=== PATIENT | female | born 1995 ===

== ENCOUNTER 2016-10-11 20:27 | Inpatient (IN) | payer BC ==
--- NOTE | 2016-10-11 21:21 | EDPHY ---
H & P Smoking Status: Never smoked Time Seen by Provider: 10/11/16 20:40 HPI/ROS: CHIEF COMPLAINT: Depression, feeling suicidal HISTORY OF PRESENT ILLNESS: 21-year-old female presents to the emergency department feeling depressed and suicidal. The patient states that she has had ongoing depression. She has been treated with medication in the past and stopped her medication on her own 1 month ago because she states "I just gave up." She continues to feel suicidal and her plan is to cut her wrists. She denies homicidal ideation. Denies auditory or visual hallucinations. Denies any reported trauma. She does smoke marijuana, last use was last evening. Denies any other substance abuse or alcohol. Currently she has no physical complaints. No chest pain or difficulty breathing. No abdominal pain. REVIEW OF SYSTEMS: Constitutional: No fever, no chills. Eyes: No double or blurry vision. ENT: No sore throat. Respiratory: No cough, no shortness of breath. Cardiac: No chest pain. Gastrointestinal: No abdominal pain, vomiting or diarrhea. Genitourinary: No dysuria. Musculoskeletal: No neck or back pain. Skin: No rashes. Neurological: No headache. (Riri Brush) Past Medical/Surgical History: Depression, orthopedic surgery (Riri Brush) Social History: Single, from [place] (Riri Brush) Physical Exam: General Appearance: Alert, no distress. Her girlfriend is at bedside. Eyes: Pupils equal and round. Extraocular motions are all intact. ENT: Mouth: Mucous membranes moist. Respiratory: No wheezing, rhonchi, or rales, lungs are clear to auscultation. Cardiovascular: Regular rate and rhythm. Gastrointestinal: Abdomen is soft and nontender, no masses, no rebound or guarding, bowel sounds normal. Neurological: Alert and oriented x 3, cranial nerves II through XII grossly intact Skin: Warm and dry, no rashes. Musculoskeletal: Nontender to palpate along the cervical, thoracic or lumbar spine. Neck is supple. Extremities: Full range of motion and no peripheral edema. Psychiatric: Patient is oriented X 3, there is no agitation. (Riri Brush) Constitutional: Initial Vital Signs Temperature (C) 36.9 C 10/11/16 20:44 Heart Rate 91 10/11/16 20:44 Respiratory Rate 14 10/11/16 20:44 Blood Pressure 115/87 H 10/11/16 20:44 O2 Sat (%) 95 10/11/16 20:44 O2 Delivery Mode Room Air Allergies/Adverse Reactions: No Known Allergies Allergy (Unverified 10/11/16 20:40) Home Medications: Medication Instructions Recorded ARIPiprazole [Aripiprazole] 5 mg PO DAILY 10/12/16 FLUoxetine [Prozac 20 MG (*)] 40 mg PO DAILY 10/12/16 Gabapentin [Gabapentin] 100 mg PO TID 10/12/16 traZODone [traZODONE 50MG (*)] 50 - 100 mg PO HS 10/12/16 Medical Decision Making ED Course/Re-evaluation: 21-year-old female presents voluntarily feeling depressed and suicidal. She was placed on a detainer. Laboratory studies are pending. When she is medically cleared, she will be evaluated by mental health. Patient is a been evaluated by mental health. She was placed on an M1 hold and will be placed on [address] [place] [address] at [facility]. (Riri Brush) I assumed care of this patient from Dr. Zendejas at 7:00 a.m.. I was notified by her nurse that she had a headache and was requesting Tylenol. Tylenol as being administered. Her transfer to [address] [place] [address] is scheduled for this morning. ( Tamy Loving) 11:30 p.m. patient placed on an M1 hold after evaluation by mental health services. They will begin looking for placement. (Junior Zendejas) Differential Diagnosis: Depression including functional and major depression, situational depression, medication side effect, drugs and alcohol abuse. (Riri Brush) - Data Points Laboratory Results: Laboratory Results 10/11/16 20:45 10/11/16 20:45 Medications Given: Discontinued Medications Acetaminophen (Tylenol) 650 mg PO EDNOW ONE Stop: 10/12/16 08:08 Last Admin: 10/12/16 08:08 Dose: 650 mg Departure - Departure Disposition: [facility] IP Clinical Impression: Suicidal ideation Condition: Good
[2016-10-11 21:23] LABS: % IMMATURE GRANULYOCYTES 0.3 % (0.0-1.1); ABSOLUTE IMMATURE GRANULOCYTES 0.03 10^3/uL (0.00-0.10); ADD DIFF? NO; ADD MORPH? NO; ADD SCAN? NO; ATYPICAL LYMPHOCYTE FLAG 20 (0-99); FRAGMENT RBC FLAG 0 (0-99); HEMATOCRIT 44.7 % (38.0-47.0); HEMOGLOBIN 14.8 g/dL (12.6-16.3); LEFT SHIFT FLG 0 (0-99); LIPEMIA HEMOLYSIS FLAG 80 (0-99); MEAN CELL HEMOGLOBIN 29.2 pg (27.9-34.1); MEAN CELL HEMOGLOBIN CONCENTR. 33.1 g/dL (32.4-36.7); MEAN CELL VOLUME 88.2 fL (81.5-99.8); MEAN PLATELET VOLUME 10.8 fL (8.7-11.7); PLATELET CLUMPS FLAG 0 (0-99); PLATELET COUNT 368 10^3/uL (150-400); RED BLOOD CELL COUNT 5.07 10^6/uL (4.18-5.33)
[2016-10-11 21:26] LABS: ANION GAP 14 mEq/L (8-16); CALCIUM 9.8 mg/dL (8.5-10.4); CARBON DIOXIDE 24 mEq/l (22-31); CHLORIDE 102 mEq/L (97-110); CREATININE 0.8 mg/dL (0.6-1.0); GLOMERULAR FILTRATION RATE > 60; GLUCOSE 84 mg/dL (70-100); POTASSIUM 4.1 mEq/L (3.5-5.2); SODIUM 140 mEq/L (134-144)
[2016-10-12] MEDS ORDERED: ACETAMINOPHEN 325 MG TAB PO ONE (08:07)
--- NOTE | 2016-10-12 18:28 | BCON ---
[ rep ] BEHAVIORAL HEALTH CONSULTATION INTERNAL MEDICINE CONSULTATION DATE OF CONSULTATION: 10/12/2016 REFERRING PHYSICIAN: Dr. Goldman REASON FOR CONSULTATION: Medical clearance for inpatient behavioral health stay. HISTORY OF PRESENT ILLNESS: Ms. Acevedo came to the emergency department yesterday reporting suicidal ideation and plan to commit suicide by cutting her wrists. She was evaluated by the mental health team and admitted for further psychiatric care. Currently, she is without any medical complaints. PAST MEDICAL HISTORY: 1. Depression. 2. History of ankle surgery for a bone fragment. MEDICATIONS: Prior to admission, she was prescribed aripiprazole, gabapentin, fluoxetine, and trazodone. She reports that she had been noncompliant with these medications for approximately a month, but took them again on the day of admission. ALLERGIES: There are no known drug allergies. SOCIAL HISTORY: [place] She works on the farm 2 days a week. She has a girlfriend. She denies tobacco use. She has alcohol about once a week and she has regular marijuana use. FAMILY HISTORY: Noncontributory. REVIEW OF SYSTEMS: She denies weight change, fevers, chills, cough, dyspnea, chest pain, palpitations, nausea, vomiting, constipation, diarrhea, dysuria, urinary frequency, joint pain or joint swelling, and otherwise a 10-point review of systems is negative. PHYSICAL EXAMINATION: VITAL SIGNS: Blood pressure is 113/74, heart rate is 88 , respiratory rate is 14, oxygen saturation is 96% on room air, temperature is 36.8 degrees centigrade. Weight is 90.7 kg for a body mass index of 35.4. GENERAL: This is an obese woman, appears her chronologic age, cooperative, and in no acute distress. HEENT: Extraocular movements are intact. Pupils are equal, round, and reactive to light. Mucous membranes are moist. Dentition is in good condition. She has a somewhat crowded airway, Mallampati class 3. There is no posterior oropharyngeal mucus. There are no oropharyngeal mucosal lesions. NECK: Supple. HEART: There is a regular rate and rhythm with no murmurs, rubs, or gallops. LUNGS: Clear to auscultation bilaterally. ABDOMEN : Soft, nontender, nondistended with normoactive bowel sounds. EXTREMITIES: There is no cyanosis, clubbing or edema. NEUROLOGIC: She is alert and oriented x3. Cranial nerves 2-12 are grossly intact. There is no focal weakness and sensation is intact to light touch. LABORATORY STUDIES: Drawn in the emergency department: CBC revealed an elevated white blood cell count of 9.94. There was no left shift. There was a slight predominance of absolute monocytes of 0.86. Serum chemistry revealed normal renal function and electrolytes. TSH was normal. Beta HCG was negative for . Toxicology screen in the urine was non-negative for marijuana and was otherwise negative for substances of abuse. ASSESSMENT/RECOMMENDATIONS: 1. Mental health issues, pending further evaluation and management per Psychiatry and the mental health team. 2. Obesity. Consider avoiding medications which might cause further weight gain; however, psychosocial stabilization is our 1st priority in her current circumstance. I see no medical contraindications to Ms. Acevedo's continued stay on the inpatient behavioral health unit or to any psychiatric medications or procedures. Thank you very much for including me in the care of Ms. Acevedo, and please do not hesitate to contact me or the hospitalist service should there be need for further medical evaluation. /[id number]/MODL MTDD
[2016-10-12] MEDS: LORazepam 0.5 MG TAB PO PRN (20:42)
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
--- NOTE | 2016-10-13 13:25 | SOAPPROG ---
[facility] Progress Note Assessment/Plan: Assessment: Plan: 10/13/16 13:19 DAY Pt seen in f/u to the admission interview earlier today; case reviewed telephonically with PCP in [place] who had prescribed for pt for 2 years. He was not aware of her Bipolar vulnerability and prescribed SSRI's and did confirm the h/o of good responsiveness and then "poop out" phenomenon to Prozac and others. Pt accepting beginning a trial of Lithobid and Wellbutrin at 600 mg and 100 mg qd respectively. Will try Wellbutrin for more rapid response and because previous extended AD courses have apparently not caused any switch episodes or change the monthly pattern of 3-5 day functional hypomanias pre pt's report. Will obtain further collateral data. Objective: Vital Signs Temp Pulse Resp BP Pulse Ox 36.7 C 99 15 108/71 96 10/13/16 06:00 10/13/16 06:00 10/13/16 06:00 10/13/16 06:00 10/13/16 06:00 ICD10 Worksheet Patient Problems: Problems Problem Status Onset Suicidal ideation Acute
[2016-10-13] MEDS: LITHIUM CARBONATE ER 300 MG TAB PO SCH ×2 (13:53→20:24)
[2016-10-13] MEDS: buPROPion SR 100 MG TAB PO SCH (13:54)
[2016-10-13] MEDS: LORazepam 0.5 MG TAB PO PRN (16:29)
[2016-10-14] MEDS: LORazepam 0.5 MG TAB PO PRN (03:10)
[2016-10-14] MEDS: buPROPion SR 100 MG TAB PO SCH (12:22)
[2016-10-14] MEDS: LITHIUM CARBONATE ER 300 MG TAB PO SCH (12:22)
--- NOTE | 2016-10-14 12:48 | SOAPPROG ---
PA Progress Note Assessment/Plan: Assessment: Plan: 10/13/16 13:19 DAY Pt seen in f/u to the admission interview earlier today; case reviewed telephonically with PCP in [place] who had prescribed for pt for 2 years. He was not aware of her Bipolar vulnerability and prescribed SSRI's and did confirm the h/o of good responsiveness and then "poop out" phenomenon to Prozac and others. Pt accepting beginning a trial of Lithobid and Wellbutrin at 600 mg and 100 mg qd respectively. Will try Wellbutrin for more rapid response and because previous extended AD courses have apparently not caused any switch episodes or change the monthly pattern of 3-5 day functional hypomanias pre pt's report. Will obtain further collateral data. 09/22162216 UPDATE: Objective: Vital Signs Temp Pulse Resp BP Pulse Ox 36.9 C 80 14 110/73 97 10/14/16 06:00 10/14/16 06:00 10/14/16 06:00 10/14/16 06:00 10/14/16 06:00 ICD10 Worksheet Patient Problems: Problems Problem Status Onset Suicidal ideation Acute
--- NOTE | 2016-10-14 13:27 | SOAPPROG ---
[facility] Progress Note Assessment/Plan: Assessment: Plan: 10/13/16 13:19 DAY Pt seen in f/u to the admission interview earlier today; case reviewed telephonically with PCP in [place] who had prescribed for pt for 2 years. He was not aware of her Bipolar vulnerability and prescribed SSRI's and did confirm the h/o of good responsiveness and then "poop out" phenomenon to Prozac and others. Pt accepting beginning a trial of Lithobid and Wellbutrin at 600 mg and 100 mg qd respectively. Will try Wellbutrin for more rapid response and because previous extended AD courses have apparently not caused any switch episodes or change the monthly pattern of 3-5 day functional hypomanias pre pt's report. Will obtain further collateral data. 09/2216 13:20 DAY 3 UPDATE: Nursing reports remains somewhat isolative, c/w cares/meds; curled up in shower stall last PM in a transient "breakdown" - code word for loneliness and missing family and girlfriend and c/w pt's prominent object dependency ON EXAM: presnets as outwardly calm, cooperative, c onversant; report that she' s switched last pm to an internal sense of hypomania a/w racing thoughts, briefer thought focus, interrupted sleep; she states she's "due" for a 3-5 day hypomanic episode; meds reviewed as referenced; responsive to reintegrative support. ASSESSMENT/PLAN: affective state change from syndromal depression to mildly hypomanic state/ will increase Lithobid to 900 mg qd, no change in Wellbutrin dosing for now, add Trazodone 50 mg hs prn; continue current management plan other then to s/i as Voluntary pt and open up AG's Objective: Vital Signs Temp Pulse Resp BP Pulse Ox 36.9 C 80 14 110/73 97 10/14/16 06:00 10/14/16 06:00 10/14/16 06:00 10/14/16 06:00 10/14/16 06:00 ICD10 Worksheet Patient Problems: Problems Problem Status Onset Suicidal ideation Acute
[2016-10-14] MEDS ORDERED: LITHIUM CARBONATE ER 300 MG TAB PO SCH (21:00)
[2016-10-14] MEDS: traZODone 50 MG TAB PO PRN (22:04)
--- NOTE | 2016-10-15 07:16 | SOAPPROG ---
[facility] Progress Note Assessment/Plan: Assessment: Plan: 10/13/16 13:19 DAY Pt seen in f/u to the admission interview earlier today; case reviewed telephonically with PCP in [place] who had prescribed for pt for 2 years. He was not aware of her Bipolar vulnerability and prescribed SSRI's and did confirm the h/o of good responsiveness and then "poop out" phenomenon to Prozac and others. Pt accepting beginning a trial of Lithobid and Wellbutrin at 600 mg and 100 mg qd respectively. Will try Wellbutrin for more rapid response and because previous extended AD courses have apparently not caused any switch episodes or change the monthly pattern of 3-5 day functional hypomanias pre pt's report. Will obtain further collateral data. 10/14/16 DAY ' UPDATE: Objective: Vital Signs Temp Pulse Resp BP Pulse Ox 36.8 C 59 L 14 100/59 L 97 10/15/16 06:00 10/15/16 06:00 10/15/16 06:00 10/15/16 06:00 10/15/16 06:00 ICD10 Worksheet Patient Problems: Problems Problem Status Onset Suicidal ideation Acute
--- NOTE | 2016-10-15 07:28 | SOAPPROG ---
PA Progress Note Assessment/Plan: Assessment: Plan: 10/13/16 13:19 DAY Pt seen in f/u to the admission interview earlier today; case reviewed telephonically with PCP in [place] who had prescribed for pt for 2 years. He was not aware of her Bipolar vulnerability and prescribed SSRI's and did confirm the h/o of good responsiveness and then "poop out" phenomenon to Prozac and others. Pt accepting beginning a trial of Lithobid and Wellbutrin at 600 mg and 100 mg qd respectively. Will try Wellbutrin for more rapid response and because previous extended AD courses have apparently not caused any switch episodes or change the monthly pattern of 3-5 day functional hypomanias pre pt's report. Will obtain further collateral data. 10/14/16 12:15 DAY ' UPDATE: Nursing report pt appears less depressed, c/w cares and meds; found curled up in shower stall in pm 10/13 c/o "loneliness" and missing friends and family. wishing she could be dc'd home. ON EXAM: presents as relatively calm, brighter mood; describes onset of " racing thoughts" emerging in pm before sleep c/w onset of monthly hypomanic episode which pt is not able clearly to relate to menstrual cycle; able to discuss regressive episode last evening as a "crisis" of loneliness which she states she has from time to time and consistent with her dependent needs for contact with objects in her life; meds reviewed and pt accepts updosing of Lithobid; no POS and pt with intact attention/concentration, affectively outwardly stable ASSESSMENT/PLAN: emerging hypomania - "quiet type/ monitor MSE for further switch phenomnology; [place] increased to 900 mg qd and Wellbutrin SR unchanged at 100 mg; continue current management plan Objective: Vital Signs Temp Pulse Resp BP Pulse Ox 36.8 C 59 L 14 100/59 L 97 10/15/16 06:00 10/15/16 06:00 10/15/16 06:00 10/15/16 06:00 10/15/16 06:00 ICD10 Worksheet Patient Problems: Problems Problem Status Onset Suicidal ideation Acute
[2016-10-15] MEDS ORDERED: LITHIUM CARBONATE ER 300 MG TAB PO SCH ×4 (09:00→21:00)
[2016-10-15] MEDS: buPROPion SR 100 MG TAB PO SCH (09:13)
--- NOTE | 2016-10-15 11:56 | SOAPPROG ---
[facility] Progress Note Assessment/Plan: Assessment: Plan: 10/13/16 13:19 DAY Pt seen in f/u to the admission interview earlier today; case reviewed telephonically with PCP in [place] who had prescribed for pt for 2 years. He was not aware of her Bipolar vulnerability and prescribed SSRI's and did confirm the h/o of good responsiveness and then "poop out" phenomenon to Prozac and others. Pt accepting beginning a trial of Lithobid and Wellbutrin at 600 mg and 100 mg qd respectively. Will try Wellbutrin for more rapid response and because previous extended AD courses have apparently not caused any switch episodes or change the monthly pattern of 3-5 day functional hypomanias pre pt's report. Will obtain further collateral data. 10/14/16 12:15 DAY UPDATE: Nursing report pt appears less depressed, c/w cares and meds; found curled up in shower stall in pm 10/13 c/o "loneliness" and missing friends and family. wishing she could be dc'd home. ON EXAM: presents as relatively calm, brighter mood; describes onset of " racing thoughts" emerging in pm before sleep c/w onset of monthly hypomanic episode which pt is not able clearly to relate to menstrual cycle; able to discuss regressive episode last evening as a "crisis" of loneliness which she states she has from time to time and consistent with her dependent needs for contact with objects in her life; meds reviewed and pt accepts updosing of Lithobid; no POS and pt with intact attention/concentration, affectively outwardly stable ASSESSMENT/PLAN: emerging hypomania - "quiet type/ monitor MSE for further switch phenomenology; [place] increased to 900 mg qd and Wellbutrin SR unchanged at 100 mg; continue current management plan 10/15/16 11:43 DAY UPDATE/EXAM: Nursing reports pt slept, remained in good behavioral control without evidencing overt affective instability; c/w cares and meds/ on direct exam pt presents with neutral mood; reports diminution in internal raciness and minimal syndromal depression; meds discussed and pt agreeable to updosing [place] and checking level in AM and CC tentatively for 10/17 ASSESMENT/PLAN: improving descriptively, ? natural course of disorder vs medication effect/ increase [place] to 1200 mg qd and get level in AM; o/w no change in meds and management plan Objective: Vital Signs Temp Pulse Resp BP Pulse Ox 36.8 C 59 L 14 100/59 L 97 10/15/16 06:00 10/15/16 06:00 10/15/16 06:00 10/15/16 06:00 10/15/16 06:00 ICD10 Worksheet Patient Problems: Problems Problem Status Onset Suicidal ideation Acute
[2016-10-15] MEDS ORDERED: LITHIUM CARBONATE ER 300 MG TAB PO ONE (13:00)
[2016-10-15] MEDS: traZODone 50 MG TAB PO PRN (21:45)
--- NOTE | 2016-10-16 07:48 | SOAPPROG ---
[facility] Progress Note Assessment/Plan: Assessment: Plan: 10/13/16 13:19 DAY Pt seen in f/u to the admission interview earlier today; case reviewed telephonically with PCP in [place] who had prescribed for pt for 2 years. He was not aware of her Bipolar vulnerability and prescribed SSRI's and did confirm the h/o of good responsiveness and then "poop out" phenomenon to Prozac and others. Pt accepting beginning a trial of Lithobid and Wellbutrin at 600 mg and 100 mg qd respectively. Will try Wellbutrin for more rapid response and because previous extended AD courses have apparently not caused any switch episodes or change the monthly pattern of 3-5 day functional hypomanias pre pt's report. Will obtain further collateral data. 10/14/16 12:15 DAY UPDATE: Nursing report pt appears less depressed, c/w cares and meds; found curled up in shower stall in pm 10/13 c/o "loneliness" and missing friends and family. wishing she could be dc'd home. ON EXAM: presents as relatively calm, brighter mood; describes onset of " racing thoughts" emerging in pm before sleep c/w onset of monthly hypomanic episode which pt is not able clearly to relate to menstrual cycle; able to discuss regressive episode last evening as a "crisis" of loneliness which she states she has from time to time and consistent with her dependent needs for contact with objects in her life; meds reviewed and pt accepts updosing of Lithobid; no POS and pt with intact attention/concentration, affectively outwardly stable ASSESSMENT/PLAN: emerging hypomania - "quiet type/ monitor MSE for further switch phenomenology; [place] increased to 900 mg qd and Wellbutrin SR unchanged at 100 mg; continue current management plan 10/15/16 11:43 DAY UPDATE/EXAM: Nursing reports pt slept, remained in good behavioral control without evidencing overt affective instability; c/w cares and meds/ on direct exam pt presents with neutral mood; reports diminution in internal raciness and minimal syndromal depression; meds discussed and pt agreeable to updosing [place] and checking level in AM and CC tentatively for 10/17 ASSESMENT/PLAN: improving descriptively, ? natural course of disorder vs medication effect/ increase [place] to 1200 mg qd and get level in AM; o/w no change in meds and management plan 10/16/16 DAY ' UPDATE: Objective: Vital Signs Temp Pulse Resp BP Pulse Ox 37.0 C 89 14 110/67 97 10/16/16 06:00 10/16/16 06:00 10/16/16 06:00 10/16/16 06:00 10/16/16 06:00 ICD10 Worksheet Patient Problems: Problems Problem Status Onset Suicidal ideation Acute
[2016-10-16] MEDS: LITHIUM CARBONATE ER 300 MG TAB PO SCH ×2 (08:56→20:58)
[2016-10-16] MEDS: buPROPion SR 100 MG TAB PO SCH (08:56)
[2016-10-16 09:02] LABS: LITHIUM 0.6 mEq/L (0.6-1.2)
--- NOTE | 2016-10-16 16:15 | SOAPPROG ---
[facility] Progress Note Assessment/Plan: Assessment: Plan: 10/13/16 13:19 DAY Pt seen in f/u to the admission interview earlier today; case reviewed telephonically with PCP in [place] who had prescribed for pt for 2 years. He was not aware of her Bipolar vulnerability and prescribed SSRI's and did confirm the h/o of good responsiveness and then "poop out" phenomenon to Prozac and others. Pt accepting beginning a trial of Lithobid and Wellbutrin at 600 mg and 100 mg qd respectively. Will try Wellbutrin for more rapid response and because previous extended AD courses have apparently not caused any switch episodes or change the monthly pattern of 3-5 day functional hypomanias pre pt's report. Will obtain further collateral data. 10/14/16 12:15 DAY UPDATE: Nursing report pt appears less depressed, c/w cares and meds; found curled up in shower stall in pm 10/13 c/o "loneliness" and missing friends and family. wishing she could be dc'd home. ON EXAM: presents as relatively calm, brighter mood; describes onset of " racing thoughts" emerging in pm before sleep c/w onset of monthly hypomanic episode which pt is not able clearly to relate to menstrual cycle; able to discuss regressive episode last evening as a "crisis" of loneliness which she states she has from time to time and consistent with her dependent needs for contact with objects in her life; meds reviewed and pt accepts updosing of Lithobid; no POS and pt with intact attention/concentration, affectively outwardly stable ASSESSMENT/PLAN: emerging hypomania - "quiet type/ monitor MSE for further switch phenomenology; [place] increased to 900 mg qd and Wellbutrin SR unchanged at 100 mg; continue current management plan 10/15/16 11:43 DAY UPDATE/EXAM: Nursing reports pt slept, remained in good behavioral control without evidencing overt affective instability; c/w cares and meds/ on direct exam pt presents with neutral mood; reports diminution in internal raciness and minimal syndromal depression; meds discussed and pt agreeable to updosing [place] and checking level in AM and CC tentatively for 10/17 ASSESMENT/PLAN: improving descriptively, ? natural course of disorder vs medication effect/ increase [place] to 1200 mg qd and get level in AM; o/w no change in meds and management plan 10/16/16 16:15 DAY ' UPDATE//EXAM: Nursing reports pt as continuing improving course with stabilization affectively, c/w cares/meds; relative isolative but interacting with unit community appropriately/ on direct exam appear brighter and rei SI, depressive residual, and minimal hypomanic brkthru, tolerating meds well Objective: Vital Signs Temp Pulse Resp BP Pulse Ox 37.0 C 89 14 110/67 97 10/16/16 06:00 10/16/16 06:00 10/16/16 06:00 10/16/16 06:00 10/16/16 06:00 ICD10 Worksheet Patient Problems: Problems Problem Status Onset Suicidal ideation Acute
--- NOTE | 2016-10-16 16:18 | SOAPPROG ---
[facility] Progress Note Assessment/Plan: Assessment: Plan: 10/13/16 13:19 DAY Pt seen in f/u to the admission interview earlier today; case reviewed telephonically with PCP in [place] who had prescribed for pt for 2 years. He was not aware of her Bipolar vulnerability and prescribed SSRI's and did confirm the h/o of good responsiveness and then "poop out" phenomenon to Prozac and others. Pt accepting beginning a trial of Lithobid and Wellbutrin at 600 mg and 100 mg qd respectively. Will try Wellbutrin for more rapid response and because previous extended AD courses have apparently not caused any switch episodes or change the monthly pattern of 3-5 day functional hypomanias pre pt's report. Will obtain further collateral data. 10/14/16 12:15 DAY UPDATE: Nursing report pt appears less depressed, c/w cares and meds; found curled up in shower stall in pm 10/13 c/o "loneliness" and missing friends and family. wishing she could be dc'd home. ON EXAM: presents as relatively calm, brighter mood; describes onset of " racing thoughts" emerging in pm before sleep c/w onset of monthly hypomanic episode which pt is not able clearly to relate to menstrual cycle; able to discuss regressive episode last evening as a "crisis" of loneliness which she states she has from time to time and consistent with her dependent needs for contact with objects in her life; meds reviewed and pt accepts updosing of Lithobid; no POS and pt with intact attention/concentration, affectively outwardly stable ASSESSMENT/PLAN: emerging hypomania - "quiet type/ monitor MSE for further switch phenomenology; [place] increased to 900 mg qd and Wellbutrin SR unchanged at 100 mg; continue current management plan 10/15/16 11:43 DAY UPDATE/EXAM: Nursing reports pt slept, remained in good behavioral control without evidencing overt affective instability; c/w cares and meds/ on direct exam pt presents with neutral mood; reports diminution in internal raciness and minimal syndromal depression; meds discussed and pt agreeable to updosing [place] and checking level in AM and CC tentatively for 10/17 ASSESMENT/PLAN: improving descriptively, ? natural course of disorder vs medication effect/ increase [place] to 1200 mg qd and get level in AM; o/w no change in meds and management plan 10/16/16 16:15 DAY ' UPDATE//EXAM: Nursing reports pt as continuing improving course with stabilization affectively, c/w cares/meds; relative isolative but interacting with unit community appropriately/ on direct exam appear brighter and denies SI , depressive residual, and minimal hypomanic brkthru, tolerating meds well ASSESSMENT/PLAN: stabilizing mental status; [place] level 0.6/ no change in meds or management plan; anticipateDC in AM if progress holds and referrals in place Objective: Vital Signs Temp Pulse Resp BP Pulse Ox 37.0 C 89 14 110/67 97 10/16/16 06:00 10/16/16 06:00 10/16/16 06:00 10/16/16 06:00 10/16/16 06:00 ICD10 Worksheet Patient Problems: Problems Problem Status Onset Suicidal ideation Acute
[2016-10-16] MEDS: traZODone 50 MG TAB PO PRN (21:00)
[2016-10-17 06:22] VITALS: BP 121/59; PULSE 69; RESP 16; TEMP 98.4; O2SAT 95
--- NOTE | 2016-10-17 07:16 | SOAPPROG ---
[facility] Progress Note Assessment/Plan: Assessment: Plan: 10/13/16 13:19 DAY Pt seen in f/u to the admission interview earlier today; case reviewed telephonically with PCP in [place] who had prescribed for pt for 2 years. He was not aware of her Bipolar vulnerability and prescribed SSRI's and did confirm the h/o of good responsiveness and then "poop out" phenomenon to Prozac and others. Pt accepting beginning a trial of Lithobid and Wellbutrin at 600 mg and 100 mg qd respectively. Will try Wellbutrin for more rapid response and because previous extended AD courses have apparently not caused any switch episodes or change the monthly pattern of 3-5 day functional hypomanias pre pt's report. Will obtain further collateral data. 10/14/16 12:15 DAY UPDATE: Nursing report pt appears less depressed, c/w cares and meds; found curled up in shower stall in pm 10/13 c/o "loneliness" and missing friends and family. wishing she could be dc'd home. ON EXAM: presents as relatively calm, brighter mood; describes onset of " racing thoughts" emerging in pm before sleep c/w onset of monthly hypomanic episode which pt is not able clearly to relate to menstrual cycle; able to discuss regressive episode last evening as a "crisis" of loneliness which she states she has from time to time and consistent with her dependent needs for contact with objects in her life; meds reviewed and pt accepts updosing of Lithobid; no POS and pt with intact attention/concentration, affectively outwardly stable ASSESSMENT/PLAN: emerging hypomania - "quiet type/ monitor MSE for further switch phenomenology; [place] increased to 900 mg qd and Wellbutrin SR unchanged at 100 mg; continue current management plan 10/15/16 11:43 DAY UPDATE/EXAM: Nursing reports pt slept, remained in good behavioral control without evidencing overt affective instability; c/w cares and meds/ on direct exam pt presents with neutral mood; reports diminution in internal raciness and minimal syndromal depression; meds discussed and pt agreeable to updosing [place] and checking level in AM and CC tentatively for 10/17 ASSESSMENT/PLAN: improving descriptively, ? natural course of disorder vs medication effect/ increase [place] to 1200 mg qd and get level in AM; o/w no change in meds and management plan 10/16/16 16:15 DAY UPDATE//EXAM: Nursing reports pt as continuing improving course with stabilization affectively, c/w cares/meds; relative isolative but interacting with unit community appropriately/ on direct exam appear brighter and denies SI , depressive residual, and minimal hypomanic brkthru, tolerating meds well ASSESSMENT/PLAN: stabilizing mental status; [place] level 0.6/ no change in meds or management plan; anticipate DC in AM if progress holds and referrals in place 10/17/16 Brief DC Note DAY UPDATE/EXAM: Objective: Vital Signs Temp Pulse Resp BP Pulse Ox 36.9 C 69 16 121/59 H 95 10/17/16 06:00 10/17/16 06:00 10/17/16 06:00 10/17/16 06:00 10/17/16 06:00 ICD10 Worksheet Patient Problems: Problems Problem Status Onset Suicidal ideation Acute
[2016-10-17] MEDS: LITHIUM CARBONATE ER 300 MG TAB PO SCH (09:07)
[2016-10-17] MEDS: buPROPion SR 100 MG TAB PO SCH (09:07)
--- NOTE | 2016-10-17 09:31 | SOAPPROG ---
SOAP Progress Note Assessment/Plan: Assessment: Plan: 10/13/16 13:19 DAY Pt seen in f/u to the admission interview earlier today; case reviewed telephonically with PCP in [place] who had prescribed for pt for 2 years. He was not aware of her Bipolar vulnerability and prescribed SSRI's and did confirm the h/o of good responsiveness and then "poop out" phenomenon to Prozac and others. Pt accepting beginning a trial of Lithobid and Wellbutrin at 600 mg and 100 mg qd respectively. Will try Wellbutrin for more rapid response and because previous extended AD courses have apparently not caused any switch episodes or change the monthly pattern of 3-5 day functional hypomanias pre pt's report. Will obtain further collateral data. 10/14/16 12:15 DAY UPDATE: Nursing report pt appears less depressed, c/w cares and meds; found curled up in shower stall in pm 10/13 c/o "loneliness" and missing friends and family. wishing she could be dc'd home. ON EXAM: presents as relatively calm, brighter mood; describes onset of " racing thoughts" emerging in pm before sleep c/w onset of monthly hypomanic episode which pt is not able clearly to relate to menstrual cycle; able to discuss regressive episode last evening as a "crisis" of loneliness which she states she has from time to time and consistent with her dependent needs for contact with objects in her life; meds reviewed and pt accepts updosing of Lithobid; no POS and pt with intact attention/concentration, affectively outwardly stable ASSESSMENT/PLAN: emerging hypomania - "quiet type/ monitor MSE for further switch phenomenology; [place] increased to 900 mg qd and Wellbutrin SR unchanged at 100 mg; continue current management plan 10/15/16 11:43 DAY UPDATE/EXAM: Nursing reports pt slept, remained in good behavioral control without evidencing overt affective instability; c/w cares and meds/ on direct exam pt presents with neutral mood; reports diminution in internal raciness and minimal syndromal depression; meds discussed and pt agreeable to updosing [place] and checking level in AM and CC tentatively for 10/17 ASSESSMENT/PLAN: improving descriptively, ? natural course of disorder vs medication effect/ increase [place] to 1200 mg qd and get level in AM; o/w no change in meds and management plan 10/16/16 16:15 DAY UPDATE//EXAM: Nursing reports pt as continuing improving course with stabilization affectively, c/w cares/meds; relative isolative but interacting with unit community appropriately/ on direct exam appear brighter and denies SI , depressive residual, and minimal hypomanic brkthru, tolerating meds well ASSESSMENT/PLAN: stabilizing mental status; [place] level 0.6/ no change in meds or management plan; anticipate DC in AM if progress holds and referrals in place 10/17/16 Brief DC Note DAY UPDATE/EXAM: Nursing reports pt's sustaining her clinical stability over the last 24 hours, c/w cares/meds, not evidencing depressive or hypomanic sx; [place] level reports as 0.6/ on direct exam pt presents as affectively stable; expresses frustration about lack of closure with agency scheduling intake for psychotherapy referral but is scheduled to resume with her psychiatrist 10/30; meds reviewed, overview of gains achieved during inpt course of rx reiterated thoughtfully by the pt; sufficiently stable for DC today. ASSESSMENT/PLAN: ready for Dc today given level of restabilization will dc to company of friend [employer] to her apartment followup outpt rx - meds management scheduled 10/30 and referral to psychotherapist pending; call to psychiatrist pending DC meds as referenced below -pt given 15day scripts 10/17/16 09:30 Medications 15 day scripts @ DC Generic Name Dose Route Start Last Admin Trade Name Freq PRN Reason Stop Dose Admin Bupropion HCl 100 mg 10/13/16 13:30 10/17/16 09:07 Wellbutrin Sr PO 04/11/17 13:29 100 mg DAILY KIKO [place] Carbonate 600 mg 10/16/16 09:00 10/17/16 09:07 Lithobid PO 04/14/17 08:59 600 mg BID KIKO Trazodone HCl 50 mg 10/14/16 13:19 10/16/16 21:00 Trazodone PO 04/12/17 20:59 50 mg HS PRN Sleep/Insomnia Objective: Vital Signs Temp Pulse Resp BP Pulse Ox 36.9 C 69 16 121/59 H 95 10/17/16 06:00 10/17/16 06:00 10/17/16 06:00 10/17/16 06:00 10/17/16 06:00 ICD10 Worksheet Patient Problems: Problems Problem Status Onset Suicidal ideation Acute
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
== END 2016-10-17 13:13 | disposition home or self-care (01) | DRG 885 ==
LOC: BBEH 10-12 09:00
PROVIDERS: ADMIT Psychiatry & Neurology Psychiatry; ATTEND Psychiatry & Neurology Psychiatry
DX: F33.9 Major depressive disorder, recurrent, unspecified (principal); Z91.128 Patient's intentional underdosing of medication regimen for other reason; F12.90 Cannabis use, unspecified, uncomplicated; E66.9 Obesity, unspecified; Z63.79 Other stressful life events affecting family and household
CPT/HCPCS: 80305

== ENCOUNTER 2017-03-28 07:45 | Emergency (ER) | payer BC, OTHER ==
[2017-03-28 07:53] VITALS: BP 122/77; PULSE 114; RESP 20; TEMP 97.7; O2SAT 97
--- NOTE | 2017-03-28 08:34 | EDPHY ---
HPI/HX/ROS/PE/MDM Narrative: CHIEF COMPLAINT: Right shoulder and clavicle pain HPI: The patient is a 22 y/o female complaining of right clavicle and shoulder pain. She was playing rugby last night when she was hit with a high tackle. She admits to being hit by the other play and then falling onto her right shoulder. Denies numbness, weakness, difficulty breathing, fever or other pertinent symptoms. She denies chest pain or abdominal pain. No SOB. REVIEW OF SYSTEMS: Aside from elements discussed in the HPI, a comprehensive 10-point review of systems was reviewed and is negative. PMH: Denies SOCIAL HISTORY: Lives in [place], single, unemployed PHYSICAL EXAM: General:Patient is alert, in no acute distress. ENT:Eyes are normal to inspection. ENT inspection normal. Neck: Normal inspection. Full range of motion. Respiratory:No respiratory distress. Breath sounds normal bilaterally. Cardiovascular: Regular rate and rhythm. Strong peripheral pulses. Normal cap refill. Abdomen:The abdomen is nontender to palpation. There are no peritoneal signs. There are normal bowel sounds. Back: Normal to inspection. No tenderness to palpation. Skin: Normal color. No rash. Warm and dry. Extremities: Normal appearance. Full range of motion. Right clavicle: Tenderness to palpation. No deformity, ecchymosis or crepitus. Neuro: Oriented x3. Normal motor function. Normal sensory function. Portions of this note were transcribed by an ED scribe. I personally performed the history, physical exam, and medical decision making; and confirm the accuracy of the information in the transcribed note. ED Course: The patient is a 22 y/o female who presents with right clavicle and shoulder tenderness to palpation. 0835: Patients x-ray is negative for osseous injury. Reassessed patient and discussed imaging results. Return precautions provided; patient is comfortable with this plan. MDM: This patient presents with shoulder pain with reproducible tenderness and pain along her right clavicle. I note that her triage vitals indicated tachycardia. However, on my exam, she has a normal rate. I considered possible remote trauma with referred pain to shoulder, but patient has reproducible pain with palpation along clavicle, and does not complain of abdominal pain, chest pain or shortness of breath. This appears to represent a clavicle sprain/contusion - I think the patient is safe for outpatient management. We discussed strict return precautions. - Data Points Imaging Results: Imaging Impressions Clavicle X-Ray 03/28/17 07:57 Impression: Normal clavicle series. Imaging: I viewed and interpreted images myself General Time Seen by Provider: 03/28/17 08:30 Initial Vital Signs: Initial Vital Signs Temperature (C) 36.5 C 03/28/17 07:49 Heart Rate 114 H 03/28/17 07:49 Respiratory Rate 20 03/28/17 07:49 Blood Pressure 122/77 H 03/28/17 07:49 O2 Sat (%) 97 03/28/17 07:49 O2 Delivery Mode Room Air Allergies/Adverse Reactions: No Known Allergies Allergy (Verified 03/28/17 07:48) Home Medications: Medication Instructions Recorded ARIPiprazole [Aripiprazole] 5 mg PO DAILY 10/12/16 Gabapentin [Gabapentin] 100 mg PO TID 10/12/16 traZODone [traZODONE 50MG (*)] 50 - 100 mg PO HS 10/12/16 buPROPion SR [Wellbutrin 100mg SR 100 mg PO DAILY #30 tab 10/17/16 (*)] traZODone [traZODONE 50MG (*)] 50 mg PO HS PRN #30 tab 10/17/16 ADDERALL 12.5 MG TABLET 03/28/17 Abilify 03/28/17 Buspar (*) 03/28/17 Departure - Departure Disposition: Home, Routine, Self-Care Clinical Impression: Contusion Qualifiers: Encounter type: initial encounter Contusion area: shoulder Laterality: right Qualified Code(s): S40.011A - Contusion of right shoulder, initial encounter Condition: Good Instructions: Contusion in Adults (ED) Additional Instructions: Rest, ice, elevation. Take Ibuprofen as directed on the bottle for pain. Return to the emergency department for worsening pain, swelling, numbness, weakness or other concerns. Referrals: Elias Quiroz DO [Medical Doctor] - As per Instructions Report Scribed for: Elias Patel Report Scribed by: Gabrielel Scott Date of Report: 03/28/17 Time of Report: 08:31
== END 2017-03-28 08:40 | disposition home or self-care (01) ==
DX: S40.011A Contusion of right shoulder, initial encounter (principal); W03.XXXA Other fall on same level due to collision with another person, initial encounter; Y99.8 Other external cause status; Y93.63 Activity, rugby